=== PATIENT | male | born 1980 | race African-American/Black ===

== ENCOUNTER 2022-10-16 22:00 | Emergency (ER) | payer BC, MEDICAID ==
[~2022-10-16] VITALS: Ht 185.4 cm; Wt 81.6 kg
[2022-10-16 22:02] VITALS: BP 144/78
--- NOTE | 2022-10-16 22:02 | NUR ---
PT TO LOBBY
--- NOTE | 2022-10-17 01:29 | NUR ---
PT TO BED 12
--- NOTE | 2022-10-17 02:00 | NUR ---
Dr. Mcfarlane examining patient.
--- NOTE | 2022-10-17 02:03 | NUR ---
AT TIME OF EVALUATION PT ASLEEP WITH CHEST RISE AND FALL. ATTEMPTED TO WAKE PT WITH NO SUCCESS.
[2022-10-17 02:05] VITALS: BP 132/78
--- NOTE | 2022-10-17 02:05 | NUR ---
Patient discharged with v/s stable. Written and verbal after care instructions given and explained. Patient verbalized understanding. Ambulatory with steady gait. All questions addressed prior to discharge. Advised to follow up with PMD.
== END 2022-10-17 02:05 | disposition home or self-care (01) ==
LOC: EDBD 22:00 → MED 22:00
DX: R10.84 Generalized abdominal pain (principal)
CPT/HCPCS: 99283

== ENCOUNTER 2022-10-30 20:34 | Emergency (ER) | payer BC ==
[~2022-10-30] VITALS: Ht 177.8 cm; Wt 54.4 kg
[2022-10-30 20:38] VITALS: BP 148/98
--- NOTE | 2022-10-30 20:38 | NUR ---
PT EDDY ALMARAZ, TAKEN TO ER LOBBY VIA WHEELCHAIR BY EMS
--- NOTE | 2022-10-30 20:41 | NUR ---
PT BIB BLS C/O VOMITING X4 SINCE 1499 TODAY. PT GIVEN 4MG ZOFRAN ODT BY EMS MASTER RIGGER. DENIES HEMATEMESIS, ABDOMINAL PAIN. DENIES PMH, NKA
--- NOTE | 2022-10-30 22:41 | NUR ---
Dr. Pryor examining patient.
[2022-10-30] MEDS ORDERED: ONDA-188 PO (22:58)
[2022-10-30 23:44] VITALS: BP 142/98
== END 2022-10-30 23:44 | disposition home or self-care (01) ==
LOC: MED 20:34
DX: R11.10 Vomiting, unspecified (principal)
CPT/HCPCS: 99283

== ENCOUNTER 2022-11-01 02:21 | Emergency (ER) | payer BC ==
[~2022-11-01] VITALS: Ht 185.4 cm; Wt 81.6 kg
[~2022-11-01 02:21] MED LIST: ONDA-188 PO
[2022-11-01 02:27] VITALS: BP 146/93
--- NOTE | 2022-11-01 02:27 | NUR ---
PT OFFLOADED TO [facility]
[2022-11-01 06:15] VITALS: BP 146/93
[2022-11-01] MEDS ORDERED: ONDA-188 PO (18:36)
[2022-11-02] MEDS ORDERED: CEPH-588 PO (06:15)
== END 2022-11-01 06:15 | disposition home or self-care (01) ==
LOC: MED 02:21
DX: R10.9 Unspecified abdominal pain (principal); F20.9 Schizophrenia, unspecified
CPT/HCPCS: 99283

== ENCOUNTER 2022-11-01 17:05 | Emergency (ER) | payer BC ==
[~2022-11-01] VITALS: Ht 160 cm; Wt 83.9 kg
[2022-11-01 17:19] VITALS: BP 141/93
--- NOTE | 2022-11-01 17:20 | NUR ---
42/M EDDY FROM [facility] PER EMS PT STATED THAT HE "VOMITED 50X TODAY WITH SOME BLOOD IN MY STOOL AND VOMIT". AAO4, DENIES TRAUMA. NKA PMH: DENIES
[2022-11-01] MEDS ORDERED: ONDANSETRON 4 MG ODT PO ONE (17:25)
[2022-11-01 17:48] LABS: BASOPHILS # (AUTO) 0.1 K/uL (0.00-0.22); BASOPHILS % (AUTO) 1.3 % (0.0-2.0); EOSINOPHILS # (AUTO) 0.2 K/uL (0-0.4); EOSINOPHILS % (AUTO) 3.1 % (0.0-4.0); HEMATOCRIT 41.1 % (36-52); HEMOGLOBIN 13.2 g/dL (12.0-18.0); LYMPHOCYTES # (AUTO) 1.8 K/uL (2.0-11.5); LYMPHOCYTES % (AUTO) 36.3 % (20.5-51.1); MEAN CORPUSCULAR HEMOGLOBIN 28 pg (27-31); MEAN CORPUSCULAR HGB CONC 32 g/dL (33-37); MEAN CORPUSCULAR VOLUME 85.8 fL (80-94); MONOCYTES # (AUTO) 0.5 K/uL (0.8-1.0); MONOCYTES % (AUTO) 9.3 % (1.7-9.3); NEUTROPHILS # (AUTO) 2.4 K/uL (1.8-7.7); PLATELET COUNT (AUTO) 327 K/uL (140-450); RED BLOOD CELL COUNT(AUTO) 4.79 MIL/uL (4.20-6.10); RED CELL DISTRIBUTION WIDTH 14.5 % (11.6-13.7); WHITE BLOOD COUNT (AUTO) 4.9 K/uL (4.8-10.8)
[2022-11-01 18:18] LABS: ALBUMIN 3.5 g/dL (3.4-5.0); ANION GAP 8.5 (8-16); CARBON DIOXIDE 34.2 mmol/L (21-32); POTASSIUM 3.7 mmol/L (3.5-5.1); TOTAL BILIRUBIN 0.2 mg/dL (0.0-1.0)
[2022-11-01] MEDS ORDERED: ONDA-188 PO (18:36)
--- NOTE | 2022-11-01 19:10 | NUR ---
Patient given written and verbal discharge instructions and verbalizes understanding. Given copies of tests performed during visit. Patient is awake, alert and oriented. Ambulatory with steady gait. Refuses offer of penitentiary placement. Given list of available shelters in surrounding areas.
[2022-11-02] MEDS ORDERED: CEPH-588 PO (06:15)
== END 2022-11-01 19:10 | disposition home or self-care (01) ==
LOC: MED 17:05
DX: R11.2 Nausea with vomiting, unspecified (principal); R10.9 Unspecified abdominal pain; R19.7 Diarrhea, unspecified; F20.9 Schizophrenia, unspecified; Z79.899 Other long term (current) drug therapy
CPT/HCPCS: 36415; 80053; 85025; 99283

== ENCOUNTER 2022-11-02 02:29 | Emergency (ER) | payer BC ==
[~2022-11-02] VITALS: Ht 185.4 cm; Wt 90.7 kg
[2022-11-02 02:50] VITALS: BP 138/90
--- NOTE | 2022-11-02 02:53 | NUR ---
TO LOBBY A/W BED AMBULATORY
--- NOTE | 2022-11-02 04:25 | NUR ---
SEEN AND EXAMINED BY DELMA
[2022-11-02 05:51] LABS: APPEARANCE,URINE CLEAR (CLEAR); BILIRUBIN,URINE NEGATIVE (NEGATIVE); BLOOD, URINE TRACE-I (NEGATIVE); COLOR,URINE YELLOW (YELLOW); LEUKOCYTE ESTERASE ,URINE NEGATIVE (NEGATIVE); NITRITE, URINE NEGATIVE (NEGATIVE); UGLUCOSE NEGATIVE (NEGATIVE)
[2022-11-02 06:04] LABS: WBC,URINE 0-5 /HPF (0-5)
[2022-11-02] MEDS ORDERED: CEPH-588 PO (06:15)
[2022-11-02 06:50] VITALS: BP 119/79
== END 2022-11-02 06:50 | disposition home or self-care (01) ==
LOC: MED 02:29
DX: R30.0 Dysuria (principal); Z79.899 Other long term (current) drug therapy; Z79.2 Long term (current) use of antibiotics
CPT/HCPCS: 81001; 99283